=== PATIENT | male | born 1965 | race African-American/Black ===

== ENCOUNTER 2017-01-31 15:08 | Emergency (ER) | payer MEDICARE, OTHER ==
[~2017-01-31] VITALS: Ht 185.4 cm; Wt 150.0 kg
[~2017-01-31 15:08] MED LIST: ASPI325T PO; FURO20 PO; IMDU60TA PO; LISI-363 PO; METO50TA PO; POTA-243 PO; SIMV20 PO; ZOCO20TA PO
[2017-01-31 15:15] VITALS: BP 175/92; PULSE 88; RESP 14; TEMP 98; O2SAT 99
[2017-01-31] MEDS ORDERED: POTA-255 PO (15:21)
[2017-01-31] MEDS ORDERED: FURO1TAB62 PO (15:21)
[2017-01-31] MEDS ORDERED: ZOCO20TA PO (15:21)
[2017-01-31] MEDS ORDERED: ASPI325T PO (15:21)
[2017-01-31] MEDS ORDERED: METO50TA11 PO (15:21)
[2017-01-31] MEDS ORDERED: ROBA500T PO (16:06)
[2017-01-31] MEDS ORDERED: IBUP800T23 PO (16:06)
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
[2017-01-31] MEDS ORDERED: IBUPROFEN 800 MG TAB PO ONE (16:15)
[2017-01-31] MEDS ORDERED: METHOCARBAMOL 500 MG TAB PO ONE (16:15)
== END 2017-01-31 16:33 | disposition home or self-care (01) ==
LOC: NEPK 15:08
DX: S46.811A Strain of other muscles, fascia and tendons at shoulder and upper arm level, right arm, initial encounter (principal); I10 Essential (primary) hypertension; Z72.0 Tobacco use; X58.XXXA Exposure to other specified factors, initial encounter
CPT/HCPCS: 99283

== ENCOUNTER 2017-08-18 18:35 | Observation (INO) | payer OTHER ==
[~2017-08-18] VITALS: Ht 185.4 cm; Wt 152.5 kg
[~2017-08-18 18:35] MED LIST changes: +ASPI-183 PO; -ASPI325T PO; +FURO1TAB62 PO; -FURO20 PO; +IBUP1TAB7 PO; -IMDU60TA PO; -LISI-363 PO; +METO1TAB9 PO; -METO50TA PO; -POTA-243 PO; +POTA-255 PO; +ROBA500T PO; -SIMV20 PO
[2017-08-18 18:37] VITALS: BP 170/93; PULSE 97; RESP 22; TEMP 98.8; O2SAT 97
[2017-08-18 18:56] VITALS: O2SAT 96
[2017-08-18 18:57] VITALS: BP_SYST 174; BP_SYST 186; BP_DIAS 84; BP_DIAS 89; PULSE 89; RESP 15; O2SAT 97
[2017-08-18] MEDS ORDERED: ASPIRIN 81 MG CHEW TAB PO ONE (19:00)
[2017-08-18] MEDS ORDERED: SODIUM CHLORIDE 0.9% FLUSH 10 ML FLUSH IVF PRN (19:00)
--- NOTE | 2017-08-18 19:02 | PD ---
HPI Chief Complaint: Chest Pain Time Seen by Provider: 18:49 Travel History International Travel<30 days: No Contact w/Intl Traveler<30days: No History of Present Illness HPI 52-year-old male with a history of CABG and chronic muscle spasms presents to the emergency department complaining of anterior chest wall tightness with the sensation of "muscles locking up" along with right shoulder tingling for approximately 1 hour. Patient states that his big toe had a sharp pain, bent over, and then started developing this chest wall discomfort and 'tingling' of his right shoulder. States nothing worsens or relieves his pain at this point. Patient denies shortness of breath, nausea, vomiting, diarrhea. Denies recent trauma. Denies radiation of pain. States he has had similar symptoms previously which required a muscle relaxant but this episode seems more severe. Patient does have a history of hypertension, hyperlipidemia, diabetes and he does smoke cigarettes. Says he was late taking his medication today and thinks this is the cause of his pain. 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 His primary care physician is with [facility]. [facility] Past Medical History Arthritis: Yes (HANDS & KNEES) Asthma: No Autoimmune Disease: No Blood Disorders: No Heart Rhythm Problems: No Cancer: No Cardiac Catheterization: Yes Cardiovascular Problems: Yes High Cholesterol: Yes Chemotherapy: No Chest Pain: Yes Congestive Heart Failure: Yes COPD: No Cerebrovascular Accident: No Coronary Artery Disease: Yes Diabetes: No Endocrine: No GERD: No Genitourinary: No Headaches: Yes Hiatal Hernia: No Hypertension: Yes Immune Disorder: No Kidney Stones: No Musculoskeletal: No Neurologic: No Psychiatric: No Reproductive: No Respiratory: No Renal Failure: No Seizures: No Sickle Cell Disease: No Sleep Apnea: No Thyroid Disease: No Ulcer: No PNEUMOCCOCAL Vaccine (Year): 2 Past Surgical History Cardiac Surgery: Yes (CABG ) Coronary Artery Bypass Graft: Yes (TRIPLE 2011) Pacemaker: No Other Surgery: Yes (trip bypass) Social History Alcohol Use: Yes (OCCASSIONAL) Tobacco Use: Yes (SOME DAYS 4-6 CIG.) Substance Use: No Allergies-Medications (Allergen,Severity, Reaction): Coded Allergies: No Known Allergies (Unverified Adverse Reaction, Unknown, 08/18/17) Reported Meds & Prescriptions Reported Meds & Active Scripts Active Ibuprofen 800 Mg Tab 800 Mg PO Q8H PRN Robaxin (Methocarbamol) 500 Mg Tab 500 Mg PO QID PRN Reported Losartan (Losartan Potassium) 50 Mg Tab 50 Mg PO DAILY Clopidogrel (Clopidogrel Bisulfate) 75 Mg Tab 75 Mg PO DAILY Potassium Chloride ER (Potassium Chloride) 10 Meq Cap 10 Meq PO BID Isosorbide Mononitrate ER (Isosorbide Mononitrate) 120 Mg Enrique 120 Mg PO DAILY Amlodipine (Amlodipine Besylate) 10 Mg Tab 10 Mg PO DAILY Atorvastatin (Atorvastatin Calcium) 80 Mg Tab 80 Mg PO DAILY Flexeril (Cyclobenzaprine HCl) 10 Mg Tab 10 Mg PO TID Baclofen 10 Mg Tab 10 Mg PO Q6HR Metformin (Metformin HCl) 500 Mg Tab 500 Mg PO BIDPC Zocor (Simvastatin) 20 Mg Tab 20 Mg PO DAILY Potassium (Potassium Gluconate) 600 Mg Tablet 10 Meq PO DAILY Metoprolol Succinate ER 24 HR (Metoprolol Succinate) 50 Mg Tab 75 Mg PO BID Lasix (Furosemide) 20 Mg Tab 20 Mg PO DAILY Aspirin 325 Mg Tab 325 Mg PO DAILY Review of Systems Except as stated in HPI: all other systems reviewed are Neg Physical Exam Narrative GENERAL: Well-developed well-nourished in no apparent distress SKIN: Focused skin assessment warm/dry. HEAD: Atraumatic. Normocephalic. EYES: Pupils equal and round. No scleral icterus. No injection or drainage. ENT: No nasal bleeding or discharge. Mucous membranes pink and moist. NECK: Trachea midline. No JVD. CARDIOVASCULAR: Regular rate and rhythm. No murmur appreciated. RESPIRATORY: No accessory muscle use. Clear to auscultation. Breath sounds equal bilaterally. GASTROINTESTINAL: Abdomen soft, non-tender, nondistended. Hepatic and splenic margins not palpable. MUSCULOSKELETAL: No obvious deformities. No clubbing. No cyanosis. No edema. NEUROLOGICAL: Awake and alert. No obvious cranial nerve deficits. Motor grossly within normal limits. Normal speech. PSYCHIATRIC: Appropriate mood and affect; insight and judgment normal. Data Data Last Documented VS Vital Signs Date Time Temp Pulse Resp B/P (MAP) Pulse Ox O2 Delivery O2 Flow Rate FiO2 08/18/17 20:00 80 18 148/83 (104) 97 08/18/17 18:57 Nasal Cannula 2.00 08/18/17 18:37 98.8 Orders Orders Electrocardiogram (08/18/17 18:49) Ckmb (Isoenzyme) Profile (08/18/17 18:49) Complete Blood Count With Diff (08/18/17 18:49) Comprehensive Metabolic Panel (08/18/17 18:49) Magnesium (Mg) (08/18/17 18:49) Prothrombin Time / Inr (Pt) (08/18/17 18:49) Act Partial Throm Time (Ptt) (08/18/17 18:49) Troponin I (08/18/17 18:49) Chest, Single Ap (08/18/17 18:49) Ecg Monitoring (08/18/17 18:49) Bilateral Bp Monitoring (08/18/17 18:49) Iv Access Insert/Monitor (08/18/17 18:49) Oximetry (08/18/17 18:49) Oxygen Administration (08/18/17 18:49) Aspirin Chew (Aspirin Chew) (08/18/17 19:00) Sodium Chloride 0.9% Flush (Ns Flush) (08/18/17 19:00) Orphenadrine Inj (Norflex Inj) (08/18/17 19:30) CKMB (08/18/17 18:57) CKMB% (08/18/17 18:57) Sodium Chlor 0.9% 1000 Ml Inj (Ns 1000 M (08/18/17 20:15) Sodium Chlor 0.9% 1000 Ml Inj (Ns 1000 M (08/18/17 21:00) Nitroglycerin 2% Oint (Nitroglycerin 2% (08/18/17 20:30) Admit Order (Ed Use Only) (08/18/17 20:21) Labs Laboratory Tests Test 08/18/17 18:57 White Blood Count 8.4 TH/MM3 Red Blood Count 5.15 MIL/MM3 Hemoglobin 15.2 GM/DL Hematocrit 44.2 % Mean Corpuscular Volume 85.9 FL Mean Corpuscular Hemoglobin 29.5 PG Mean Corpuscular Hemoglobin Concent 34.3 % Red Cell Distribution Width 13.6 % Platelet Count 288 TH/MM3 Mean Platelet Volume 7.7 FL Neutrophils (%) (Auto) 46.0 % Lymphocytes (%) (Auto) 42.7 % Monocytes (%) (Auto) 7.3 % Eosinophils (%) (Auto) 3.3 % Basophils (%) (Auto) 0.7 % Neutrophils # (Auto) 3.9 TH/MM3 Lymphocytes # (Auto) 3.6 TH/MM3 Monocytes # (Auto) 0.6 TH/MM3 Eosinophils # (Auto) 0.3 TH/MM3 Basophils # (Auto) 0.1 TH/MM3 CBC Comment DIFF FINAL Differential Comment Prothrombin Time 9.7 SEC Prothromb Time International Ratio 1.0 RATIO Activated Partial Thromboplast Time 25.9 SEC Blood Urea Nitrogen 16 MG/DL Creatinine 1.42 MG/DL Random Glucose 107 MG/DL Total Protein 7.7 GM/DL Albumin 3.9 GM/DL Calcium Level 8.2 MG/DL Magnesium Level 2.1 MG/DL Alkaline Phosphatase 85 U/L Aspartate Amino Transf (AST/SGOT) 49 U/L Alanine Aminotransferase (ALT/SGPT) 42 U/L Total Bilirubin 0.4 MG/DL Sodium Level 137 MEQ/L Potassium Level 4.4 MEQ/L Chloride Level 106 MEQ/L Carbon Dioxide Level 25.9 MEQ/L Anion Gap 5 MEQ/L Estimat Glomerular Filtration Rate 63 ML/MIN Total Creatine Kinase 805 U/L Creatine Kinase MB 6.6 NG/ML Creatine Kinase MB % 0.8 % Troponin I LESS THAN 0.02 NG/ML MDM Medical Decision Making Medical Screen Exam Complete: Yes Emergency Medical Condition: Yes Differential Diagnosis STEMI, NSTEMI, Atypical chest pain, radiculopathy Narrative Course 52-year-old male with a history of CABG and chronic muscle spasms presents to the emergency department complaining of anterior chest wall tightness with the sensation of "muscles locking up" along with right shoulder tingling for approximately 1 hour. Patient states that his big toe had a sharp pain, bent over, and then started developing this chest wall discomfort and 'tingling' of his right shoulder. States nothing worsens or relieves his pain at this point. Patient denies shortness of breath, nausea, vomiting, diarrhea. Denies recent trauma. Denies radiation of pain. States he has had similar symptoms previously which required a muscle relaxant but this episode seems more severe. Patient does have a history of hypertension, hyperlipidemia, diabetes and he does smoke cigarettes. Says he was late taking his medication today and thinks this is the cause of his pain. 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 His primary care physician is with [facility]. His last stress test was November 2013. Vital signs stable. Physical exam findings consistent with muscle spasms of the right trapezius muscle. Palpation of the chest reproduces his pain. After reassessment, patient states that he started feeling a little short of breath but exam did not demonstrate respiratory distress. Norflex and 1L NS administered in the ED with improvement in his muscle symptoms. Avoided NSAIDS or prednisone for radicular symptoms because of significant cardiac history and concern for cardiac involvement. Laboratory Tests Test 08/18/17 18:57 White Blood Count 8.4 TH/MM3 Red Blood Count 5.15 MIL/MM3 Hemoglobin 15.2 GM/DL Hematocrit 44.2 % Mean Corpuscular Volume 85.9 FL Mean Corpuscular Hemoglobin 29.5 PG Mean Corpuscular Hemoglobin Concent 34.3 % Red Cell Distribution Width 13.6 % Platelet Count 288 TH/MM3 Mean Platelet Volume 7.7 FL Neutrophils (%) (Auto) 46.0 % Lymphocytes (%) (Auto) 42.7 % Monocytes (%) (Auto) 7.3 % Eosinophils (%) (Auto) 3.3 % Basophils (%) (Auto) 0.7 % Neutrophils # (Auto) 3.9 TH/MM3 Lymphocytes # (Auto) 3.6 TH/MM3 Monocytes # (Auto) 0.6 TH/MM3 Eosinophils # (Auto) 0.3 TH/MM3 Basophils # (Auto) 0.1 TH/MM3 CBC Comment DIFF FINAL Differential Comment Prothrombin Time 9.7 SEC Prothromb Time International Ratio 1.0 RATIO Activated Partial Thromboplast Time 25.9 SEC Blood Urea Nitrogen 16 MG/DL Creatinine 1.42 MG/DL Random Glucose 107 MG/DL Total Protein 7.7 GM/DL Albumin 3.9 GM/DL Calcium Level 8.2 MG/DL Magnesium Level 2.1 MG/DL Alkaline Phosphatase 85 U/L Aspartate Amino Transf (AST/SGOT) 49 U/L Alanine Aminotransferase (ALT/SGPT) 42 U/L Total Bilirubin 0.4 MG/DL Sodium Level 137 MEQ/L Potassium Level 4.4 MEQ/L Chloride Level 106 MEQ/L Carbon Dioxide Level 25.9 MEQ/L Anion Gap 5 MEQ/L Estimat Glomerular Filtration Rate 63 ML/MIN Total Creatine Kinase 805 U/L Creatine Kinase MB 6.6 NG/ML Creatine Kinase MB % 0.8 % Troponin I LESS THAN 0.02 NG/ML Toponin negative. CKMB elevated. Because of patient's persistent symptoms, history of significant cardiac disease, and risk factors, patient will be admitted to the chest pain center. Nitro administered prior to transfer of care to the Chest pain center. Pt remained stable throughout the visit. Advised on smoking cessation. 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 Diagnosis Primary Impression: Trapezius muscle strain Qualified Codes: S46.811A - Strain of other muscles, fascia and tendons at shoulder and upper arm level, right arm, initial encounter Additional Impressions: Atypical chest pain Elevated CK Condition: Stable Guerita Mednez Aug 18, 2017 19:02
[2017-08-18 19:07] LABS: AUTOMATED NEUTROPHIL # 3.9 TH/MM3 (1.8-7.7); BASOPHIL # 0.1 TH/MM3 (0-0.2); BASOPHIL % 0.7 % (0.0-2.0); EOSINOPHIL # 0.3 TH/MM3 (0-0.4); EOSINOPHIL % 3.3 % (0.0-4.0); HEMATOCRIT 44.2 % (39.0-51.0); HEMOGLOBIN 15.2 GM/DL (13.0-17.0); LYMPH % 42.7 % (9.0-44.0); LYMPHOCYTE # 3.6 TH/MM3 (1.0-4.8); MEAN CELL VOLUME 85.9 FL (80.0-100.0); MEAN CORPUSCULAR HEMOGLOBIN 29.5 PG (27.0-34.0); MEAN CORPUSCULAR HGB CONC 34.3 % (32.0-36.0); MEAN PLATELET VOLUME 7.7 FL (7.0-11.0); MONO % 7.3 % (0.0-8.0); MONOCYTE # 0.6 TH/MM3 (0-0.9); PLATELET COUNT 288 TH/MM3 (150-450); RED BLOOD COUNT 5.15 MIL/MM3 (4.50-5.90); RED CELL DISTRIBUTION WIDTH 13.6 % (11.6-17.2); WHITE BLOOD COUNT 8.4 TH/MM3 (4.0-11.0)
[2017-08-18] MEDS ORDERED: CYCL10TA PO (19:09)
[2017-08-18] MEDS ORDERED: CLOP75TA PO (19:09)
[2017-08-18] MEDS ORDERED: AMLO10TA2 PO (19:09)
[2017-08-18] MEDS ORDERED: ISOS120T PO (19:09)
[2017-08-18] MEDS ORDERED: LOSA50TA PO (19:09)
[2017-08-18] MEDS ORDERED: METF500T PO (19:09)
[2017-08-18] MEDS ORDERED: POTA10CA PO (19:09)
[2017-08-18] MEDS ORDERED: BACL10TA PO (19:09)
[2017-08-18] MEDS ORDERED: ATOR80TA45 PO (19:09)
[2017-08-18] MEDS ORDERED: ORPHENADRINE INJ 60 MG/2 ML AMP IM ONE (19:30)
[2017-08-18 19:33] LABS: PROTHROMBIN TIME - PATIENT 9.7 SEC (9.8-11.6)
--- NOTE | 2017-08-18 19:40 | RADRPT ---
EXAM DATE/TIME: 08/18/2017 19:07 [place] COMPARISON: CHEST SINGLE AP, July 14, 2014, 22:37. INDICATIONS : Chest tightness and shortness of breath. MEDICAL HISTORY : Chronic obstructive pulmonary disease. Smoker. SURGICAL HISTORY : CABG. ENCOUNTER: Initial ACUITY: 1 day PAIN SCORE: 0/10 LOCATION: Bilateral chest. FINDINGS: The lungs are clear without infiltrate, nodule, or mass. There is no appreciable pleural effusion fo r technique. Heart and mediastinum are unremarkable. There is evidence for prior median sternotomy. CONCLUSION: No acute cardiopulmonary disease. Sury Preciado MD on August 18, 2017 at 19:37 Board Certified Radiologist. This report was verified electronically.
[2017-08-18 19:50] LABS: ALBUMIN 3.9 GM/DL (3.4-5.0); ALKALINE PHOSPHATASE 85 U/L (45-117); ALT (GPT) 42 U/L (12-78); AST (GOT) 49 U/L (15-37); BICARBONATE 25.9 MEQ/L (21.0-32.0); BLOOD UREA NITROGEN 16 MG/DL (7-18); CALCIUM 8.2 MG/DL (8.5-10.1); CHLORIDE 106 MEQ/L (98-107); CREATININE 1.42 MG/DL (0.60-1.30); GLOMERULAR FILTRATION RATE 63 ML/MIN (>89); GLUCOSE,RANDOM 107 MG/DL (74-106); MAGNESIUM 2.1 MG/DL (1.5-2.5); SODIUM (NA) 137 MEQ/L (136-145); TOTAL BILIRUBIN ADULT 0.4 MG/DL (0.2-1.0); TOTAL PROTEIN 7.7 GM/DL (6.4-8.2); TROPONIN I LESS THAN 0.02 NG/ML (0.02-0.05)
[2017-08-18 20:00] VITALS: BP 148/83; PULSE 80; RESP 18; O2SAT 97
--- NOTE | 2017-08-18 20:06 | PD ---
Physical Exam Narrative General: The patient is a well-developed well-nourished male in no acute distress. Head and Neck exam: Head is normocephalic atraumatic. Eyes: EOMI, pupils are equal round and reactive to light. Nose: Midline septum with pink mucous membranes Mouth: Dentition unremarkable. Moist mucus membranes. Posterior oropharynx is not erythematous. No tonsillar hypertrophy. Uvula midline. Airway patent. Neck: No palpable lymphadenopathy. No nuchal rigidity. No thyromegaly. Cardiovascular: Regular rate and rhythm without murmurs, gallops, or rubs. Lungs: Clear to auscultation bilaterally. No wheezes, rhonchi, or rales. Abdomen: Soft, without tenderness to palpation in all 4 quadrants of the abdomen. No guarding, rebound, or rigidity. Normal bowel sounds are audible. No tenderness on palpation of McBurney's point. Negative Marrero's sign. Extremities: No clubbing or cyanosis. The patient has 1+ pitting edema bilateral lower extremities. He reports that he has chronic edema and is on a diuretic, however this is slightly worse than usual. 2+ pulses in all 4 extremities. Neurologic Exam: Grossly nonfocal. Skin Exam: No rash noted. Intact skin that is warm and dry. Data Data Last Documented VS Vital Signs Date Time Temp Pulse Resp B/P (MAP) Pulse Ox O2 Delivery O2 Flow Rate FiO2 08/18/17 20:00 80 18 148/83 (104) 97 08/18/17 18:57 Nasal Cannula 2.00 08/18/17 18:37 98.8 Orders Orders Electrocardiogram (08/18/17 18:49) Ckmb (Isoenzyme) Profile (08/18/17 18:49) Complete Blood Count With Diff (08/18/17 18:49) Comprehensive Metabolic Panel (08/18/17 18:49) Magnesium (Mg) (08/18/17 18:49) Prothrombin Time / Inr (Pt) (08/18/17 18:49) Act Partial Throm Time (Ptt) (08/18/17 18:49) Troponin I (08/18/17 18:49) Chest, Single Ap (08/18/17 18:49) Ecg Monitoring (08/18/17 18:49) Bilateral Bp Monitoring (08/18/17 18:49) Iv Access Insert/Monitor (08/18/17 18:49) Oximetry (08/18/17 18:49) Oxygen Administration (08/18/17 18:49) Aspirin Chew (Aspirin Chew) (08/18/17 19:00) Sodium Chloride 0.9% Flush (Ns Flush) (08/18/17 19:00) Orphenadrine Inj (Norflex Inj) (08/18/17 19:30) CKMB (08/18/17 18:57) CKMB% (08/18/17 18:57) Sodium Chlor 0.9% 1000 Ml Inj (Ns 1000 M (08/18/17 20:15) Sodium Chlor 0.9% 1000 Ml Inj (Ns 1000 M (08/18/17 21:00) Nitroglycerin 2% Oint (Nitroglycerin 2% (08/18/17 20:30) Admit Order (Ed Use Only) (08/18/17 20:21) Labs Laboratory Tests Test 08/18/17 18:57 White Blood Count 8.4 TH/MM3 Red Blood Count 5.15 MIL/MM3 Hemoglobin 15.2 GM/DL Hematocrit 44.2 % Mean Corpuscular Volume 85.9 FL Mean Corpuscular Hemoglobin 29.5 PG Mean Corpuscular Hemoglobin Concent 34.3 % Red Cell Distribution Width 13.6 % Platelet Count 288 TH/MM3 Mean Platelet Volume 7.7 FL Neutrophils (%) (Auto) 46.0 % Lymphocytes (%) (Auto) 42.7 % Monocytes (%) (Auto) 7.3 % Eosinophils (%) (Auto) 3.3 % Basophils (%) (Auto) 0.7 % Neutrophils # (Auto) 3.9 TH/MM3 Lymphocytes # (Auto) 3.6 TH/MM3 Monocytes # (Auto) 0.6 TH/MM3 Eosinophils # (Auto) 0.3 TH/MM3 Basophils # (Auto) 0.1 TH/MM3 CBC Comment DIFF FINAL Differential Comment Prothrombin Time 9.7 SEC Prothromb Time International Ratio 1.0 RATIO Activated Partial Thromboplast Time 25.9 SEC Blood Urea Nitrogen 16 MG/DL Creatinine 1.42 MG/DL Random Glucose 107 MG/DL Total Protein 7.7 GM/DL Albumin 3.9 GM/DL Calcium Level 8.2 MG/DL Magnesium Level 2.1 MG/DL Alkaline Phosphatase 85 U/L Aspartate Amino Transf (AST/SGOT) 49 U/L Alanine Aminotransferase (ALT/SGPT) 42 U/L Total Bilirubin 0.4 MG/DL Sodium Level 137 MEQ/L Potassium Level 4.4 MEQ/L Chloride Level 106 MEQ/L Carbon Dioxide Level 25.9 MEQ/L Anion Gap 5 MEQ/L Estimat Glomerular Filtration Rate 63 ML/MIN Total Creatine Kinase 805 U/L Creatine Kinase MB 6.6 NG/ML Creatine Kinase MB % 0.8 % Troponin I LESS THAN 0.02 NG/ML [facility] Medical Record Reviewed: Yes Supervised Visit with HANNAH: Yes Interpretation(s) Last Impressions Chest X-Ray 08/18/17 8343 Signed Impressions: Service Date/Time: Friday, August 18, 2017 19:07 - CONCLUSION: No acute cardiopulmonary disease. Sury Preciado MD Narrative Course I, Dr. Moise, have reviewed the advance practice practitioner's documentation and am in agreement, met with the patient face to face, made the diagnosis, and the medical decision making was done by me. The patient was initially evaluated by Guerita, the PA. Please see their complete history and physical. *My assessment and Findings: The patient presents with reported history of awakening with chest pain from sound sleep at approximately 4:30 to 5 PM this afternoon. He reports that he even had cramping in his right toe. He reports that he has a history of cardiac disease. He denies having any shortness of breath with the pain. He reports the pain was sharp and cramping in character. He reports that it been constant since the onset. The patient reports a history of having coronary artery bypass grafting in the past. He is unsure whether he has a history of congestive heart failure, however he does have a history of lower extremity edema and fluid in his lungs in the past by his report and is currently on a diuretic. During the course of the patients emergency department visit, the patients history, examination, and differential diagnosis were reviewed with the patient. The patient was placed on a lining marker with oximetry and frequent blood pressure monitoring. The patient had IV access obtained and blood work sent for analysis. The patient had an ECG done on arrival. The patient's ECG reveals a sinus rhythm nonspecific T-wave abnormalities, no acute ST segment elevation. QRS duration is 97 ms, QTC 429 ms. The patient was initially provided aspirin 162 mg by mouth 1, Norflex for muscle related pain, normal saline 1 L IV fluid bolus. The patients laboratory studies were reviewed and remarkable for a CBC that is within normal limits. CMP is remarkable for creatinine of 1.42, glucose 107, calcium 8.2, AST 49, CPK-MB 105, MB percent 0.8, troponin I less than 0.02, albumin 3. PT 9.7, PTT 25.9. Given the patient's elevated CPK with a normal MB percent, the patient's symptoms could certainly be musculoskeletal in origin, however given the patient's prior history of coronary artery disease, additional testing is warranted with a rule out serial cardiac enzyme protocol. The patient was given normal saline IV fluids. Radiology studies were reviewed and remarkable for a chest x-ray that shows no acute cardiopulmonary disease. The patients results were discussed with the patient, including the plan of care. I explained that further testing and/ or monitoring is indicated based on the patients history, examination, and/ or laboratory findings. Therefore, I recommended admission for additional evaluation. The patient expressed understanding and was agreeable with this plan. The patient was admitted to the hospital in stable condition and sent to a bed under the care of the chest pain center. Diagnosis Primary Impression: Chest pain, rule out acute myocardial infarction Additional Impression: Trapezius muscle strain Qualified Codes: S46.811A - Strain of other muscles, fascia and tendons at shoulder and upper arm level, right arm, initial encounter Admitting Information Admitting Physician Requests: Observation Condition: Stable Mary Moise MD Aug 18, 2017 20:06
[2017-08-18] MEDS ORDERED: SODIUM CHLOR 0.9% 1000 ML INJ 1,000 ML IV ONE (20:15)
[2017-08-18] MEDS: SODIUM CHLOR 0.9% 1000 ML INJ 1,000 ML IV SCH ×2 (20:29→20:56)
[2017-08-18] MEDS ORDERED: NITROGLYCERIN 2% OINT 1 GM PACKET TOPICAL ONE (20:30)
[2017-08-18 23:05] VITALS: BP 140/83; PULSE 78; RESP 18; TEMP 98.1; O2SAT 98
[2017-08-18 23:50] LABS: TROPONIN I LESS THAN 0.02 NG/ML (0.02-0.05)
[2017-08-19 00:58] VITALS: O2SAT 96
[2017-08-19 02:28] LABS: TROPONIN I LESS THAN 0.02 NG/ML (0.02-0.05)
[2017-08-19 03:43] VITALS: BP 150/91; PULSE 80; RESP 18; TEMP 98.1; O2SAT 97
[2017-08-19] MEDS: SODIUM CHLOR 0.9% 1000 ML INJ 1,000 ML IV SCH ×2 (06:17→06:29)
[2017-08-19 07:28] VITALS: O2SAT 94
[2017-08-19 08:14] VITALS: BP 144/77; PULSE 79; RESP 22; TEMP 98; O2SAT 97
[2017-08-19] MEDS ORDERED: ATORVASTATIN 80 MG TAB PO SCH (09:15)
[2017-08-19] MEDS ORDERED: GLUCAGON 1 MG/ML VIAL OTHER PRN (09:15)
[2017-08-19] MEDS ORDERED: FUROSEMIDE 20 MG TAB PO SCH (09:15)
[2017-08-19] MEDS ORDERED: CLOPIDOGREL 75 MG TAB PO SCH (09:15)
[2017-08-19] MEDS ORDERED: LOSARTAN 50 MG TAB PO SCH (09:15)
[2017-08-19] MEDS ORDERED: DEXTROSE 50% IN WATER 50 ML VIAL(D50) IV PUSH PRN (09:15)
--- NOTE | 2017-08-19 09:25 | HHI.HP ---
HPI Primary Care Physician Unknown Chief Complaint Chest pain History of Present Illness This is a 52-year-old male with history of CAD with a three-vessel CABG August 2011 that presents to ED with a complaint of waking up yesterday afternoon at 4: 00 with a pain in his left great toe, back pain is central chest discomfort he describes as "strange." States is not similar to when eating a bypass. Symptoms lasted 1 hour. He was short of breath. No nausea or diaphoresis. Discomfort has not recurred. 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 Arriola and confirmed that he had a stress test November 2016 is nonischemic. Most recent cardiac catheterization was December 2011 which is approximately 4 months after his bypass which revealed 2 out of 3 grafts patent but the vein graft to the RCA was totally included with failed PTCA of RCA. Patient voices compliance with medication for the most part but states he did not take his medications yesterday morning. Denies recent illness. Denies fevers or chills. Review of Systems General: Patient denies fevers, chills recent, and recent travel HEENT: Patient denies headache, sore throat, difficulty swallowing. Cardiovascular: Has the chest discomfort as mentioned above. Denies sensation of heart beating rapidly or irregularly. No syncope. Denies diaphoresis. Respiratory: He was short of breath. Denies inspirational chest discomfort. Denies coughing wheezing or hemoptysis. GI: Patient denies nausea, vomiting, diarrhea, abdominal pain, bloody stools. Musculoskeletal: Chronic back pain. Briefly a pain in his left great toe. Patient denies joint edema. Denies calf pain or edema. Neurovascular: Patient denies numbness, tingling, weakness in extremities. Denies headache. Endocrine: Denies polyuria and polydipsia. Hematologic: Denies easy bruising. Skin: Denies rash or itching. Past Family Social History Allergies: Coded Allergies: No Known Allergies (Unverified Adverse Reaction, Unknown, 08/18/17) Past Medical History CAD with 3 vessel bypass August 2011 followed by cardiac catheterization December 2011 revealing one out of 3 grafts included. Hypertension, hyperlipidemia, and diabetes. Still smokes cigarettes. Obesity. Past Surgical History Three-vessel bypass. Heart catheterizations 4 months later with failed PTCA attempt of the RCA vein graft. Reported Medications Reported Meds & Active Scripts Active Ibuprofen 800 Mg Tab 800 Mg PO Q8H PRN Reported Losartan (Losartan Potassium) 50 Mg Tab 50 Mg PO DAILY Clopidogrel (Clopidogrel Bisulfate) 75 Mg Tab 75 Mg PO DAILY Potassium Chloride ER (Potassium Chloride) 10 Meq Cap 10 Meq PO BID Isosorbide Mononitrate ER (Isosorbide Mononitrate) 120 Mg Enrique 120 Mg PO DAILY Amlodipine (Amlodipine Besylate) 10 Mg Tab 10 Mg PO DAILY Atorvastatin (Atorvastatin Calcium) 80 Mg Tab 80 Mg PO DAILY Flexeril (Cyclobenzaprine HCl) 10 Mg Tab 10 Mg PO TID Metformin (Metformin HCl) 500 Mg Tab 500 Mg PO BIDPC Potassium (Potassium Gluconate) 600 Mg Tablet 10 Meq PO DAILY Metoprolol Succinate ER 24 HR (Metoprolol Succinate) 50 Mg Tab 75 Mg PO BID Lasix (Furosemide) 20 Mg Tab 40 Mg PO DAILY Aspirin 325 Mg Tab 325 Mg PO DAILY Active Ordered Medications Current Medications Medications (Trade) Dose Ordered Sig/Eulalia Route Start Time Stop Time Status Last Admin (NS Flush) 2 ml UNSCH PRN IVF 08/18/17 19:00 Sodium Chloride 1,000 ml @ 125 mls/hr Q8H IV 08/18/17 21:00 08/19/17 06:17 Sodium Chloride 1,000 ml @ 100 mls/hr Q10H IV 08/18/17 20:29 (Norvasc) 10 mg DAILY PO 08/19/17 09:15 UNV (Aspirin) 325 mg DAILY PO 08/20/17 09:00 UNV (Lipitor) 80 mg DAILY PO 08/19/17 09:15 UNV (Plavix) 75 mg DAILY PO 08/19/17 09:15 UNV (Flexeril) 10 mg TID PO 08/19/17 13:00 UNV (Lasix) 40 mg DAILY PO 08/19/17 09:15 UNV (Imdur) 120 mg DAILY PO 08/19/17 09:15 UNV (Cozaar) 50 mg DAILY PO 08/19/17 09:15 UNV (Toprol Xl) 75 mg BID PO 08/19/17 21:00 UNV (KCl) 10 meq BID PO 08/19/17 09:15 UNV Non-Formulary Medication 10 meq DAILY PO 08/20/17 09:00 UNV (NovoLOG SUPPLEMENTAL SCALE) 1 ACHS SLIDING SCALE SQ 08/19/17 12:00 UNV (D50w (Vial) Inj) 50 ml UNSCH PRN IV PUSH 08/19/17 09:15 UNV (Glucagon Inj) 1 mg UNSCH PRN OTHER 08/19/17 09:15 UNV Family History There is family history of CAD. Social History Patient continues smoke about one third pack of cigarettes a day. Has occasional alcohol. Denies illicit drugs. Physical Exam Vital Signs Vital Signs Date Time Temp Pulse Resp B/P (MAP) Pulse Ox O2 Delivery O2 Flow Rate FiO2 08/19/17 08:14 98.0 79 22 144/77 (99) 97 08/19/17 03:43 98.1 80 18 150/91 (110) 97 08/19/17 00:58 96 Nasal Cannula 2.00 08/18/17 23:05 98.1 78 18 140/83 (102) 98 08/18/17 21:04 08/18/17 20:00 80 18 148/83 (104) 97 08/18/17 18:57 89 15 174/89 (117) 97 Nasal Cannula 2.00 186/84 (118) 08/18/17 18:56 96 Room Air 08/18/17 18:51 Nasal Cannula 2.00 08/18/17 18:37 98.8 97 22 170/93 (118) 97 Room Air Physical Exam GENERAL: This is a well-nourished, well-developed patient, in no apparent distress. Patient speaks in clear complete sentences. Patient is pleasant. Patient is obese at 152 kg. HEENT: Head is atraumatic and normocephalic. Neck is supple without lymphadenopathy and trachea is midline. No JVD or carotid bruits. CARDIOVASCULAR: Regular rate and rhythm without murmurs, gallops, or rubs. RESPIRATORY: Clear to auscultation. Breath sounds equal bilaterally. No wheezes , rales, or rhonchi. Chest wall is nontender. No use of accessory muscles. GASTROINTESTINAL: Abdomen is nontender, nondistended. Abdomen soft. No obvious pulsatile mass or bruit. No CVA tenderness. Strong femoral pulses bilaterally. Normal bowel sounds in all quadrants. MUSCULOSKELETAL: Patient is moving upper and lower extremities freely. No calf tenderness or edema, no Homans sign. Strong pulses in upper and lower extremities. NEUROLOGICAL: Patient is alert and oriented. Cranial nerves 2-12 are grossly intact. No focal deficits and speech is clear. SKIN: No rash and turgor is normal. Laboratory Laboratory Tests Test 08/18/17 18:57 08/18/17 23:00 08/19/17 01:00 White Blood Count 8.4 Red Blood Count 5.15 Hemoglobin 15.2 Hematocrit 44.2 Mean Corpuscular Volume 85.9 Mean Corpuscular Hemoglobin 29.5 Mean Corpuscular Hemoglobin Concent 34.3 Red Cell Distribution Width 13.6 Platelet Count 288 Mean Platelet Volume 7.7 Neutrophils (%) (Auto) 46.0 Lymphocytes (%) (Auto) 42.7 Monocytes (%) (Auto) 7.3 Eosinophils (%) (Auto) 3.3 Basophils (%) (Auto) 0.7 Neutrophils # (Auto) 3.9 Lymphocytes # (Auto) 3.6 Monocytes # (Auto) 0.6 Eosinophils # (Auto) 0.3 Basophils # (Auto) 0.1 CBC Comment DIFF FINAL Differential Comment Prothrombin Time 9.7 Prothromb Time International Ratio 1.0 Activated Partial Thromboplast Time 25.9 Blood Urea Nitrogen 16 Creatinine 1.42 Random Glucose 107 Total Protein 7.7 Albumin 3.9 Calcium Level 8.2 Magnesium Level 2.1 Alkaline Phosphatase 85 Aspartate Amino Transf (AST/SGOT) 49 Alanine Aminotransferase (ALT/SGPT) 42 Total Bilirubin 0.4 Sodium Level 137 Potassium Level 4.4 Chloride Level 106 Carbon Dioxide Level 25.9 Anion Gap 5 Estimat Glomerular Filtration Rate 63 Total Creatine Kinase 805 786 828 Creatine Kinase MB 6.6 5.7 Creatine Kinase MB % 0.8 0.7 Troponin I LESS THAN 0.02 LESS THAN 0.02 LESS THAN 0.02 Result Diagram: 08/18/17185608/18/17 185 Imaging Last 48 hours Impressions Chest X-Ray 08/18/17 1849 Signed Impressions: Service Date/Time: Friday, August 18, 2017 19:07 - CONCLUSION: No acute cardiopulmonary disease. Sury Preciado MD Course EKGs have sinus rhythm without significant ST segment depressions or elevations. Caprini VTE Risk Assessment Caprini VTE Risk Assessment: No/Low Risk (score <= 1) Caprini Risk Assessment Model Point Value = 1 Point Value = 2 Point Value = 3 Point Value = 5 Age 41-60 Minor surgery BMI > 25 kg/m2 Swollen legs Varicose veins or History of unexplained or recurrent spontaneous Oral contraceptives or hormone replacement Sepsis (< 1 month) Serious lung disease, including pneumonia (< 1 month) Abnormal pulmonary function Acute myocardial infarction Congestive heart failure (< 1 month) History of inflammatory bowel disease Medical patient at bed rest Age 61-74 Arthroscopic surgery Major open surgery (> 45 min) Laparoscopic surgery (> 45 min) Malignancy Confined to bed (> 72 hours) Immobilizing plaster cast Central venous access Age >= 75 History of VTE Family history of VTE Factor V Leiden Prothrombin [id number] Lupus anticoagulant Anticardiolipin antibodies Elevated serum homocysteine Heparin-induced thrombocytopenia Other congenital or acquired thrombophilia Stroke (< 1 month) Elective arthroplasty Hip, pelvis, or leg fracture Acute spinal cord injury (< 1 month) Prophylaxis Regimen Total Risk Factor Score Risk Level Prophylaxis Regimen 0-1 Low Early ambulation 2 Moderate Order ONE of the following: *Sequential Compression Device (SCD) *Heparin 5000 units SQ BID 3-4 Higher Order ONE of the following medications: *Heparin 5000 units SQ TID *Enoxaparin/Lovenox 40 mg SQ daily (WT < 150 kg, CrCl > 30 mL/min) *Enoxaparin/Lovenox 30 mg SQ daily (WT < 150 kg, CrCl > 10-29 mL/min) *Enoxaparin/Lovenox 30 mg SQ BID (WT < 150 kg, CrCl > 30 mL/min) AND/OR *Sequential Compression Device (SCD) 5 or more Highest Order ONE of the following medications: *Heparin 5000 units SQ TID (Preferred with Epidurals) *Enoxaparin/Lovenox 40 mg SQ daily (WT < 150 kg, CrCl > 30 mL/min) *Enoxaparin/Lovenox 30 mg SQ daily (WT < 150 kg, CrCl > 10-29 mL/min) *Enoxaparin/Lovenox 30 mg SQ BID (WT < 150 kg, CrCl > 30 mL/min) AND *Sequential Compression Device (SCD) Assessment and Plan Assessment and Plan * Chest pain: Patient has had serial cardiac enzymes and EKGs for ruling out purposes. CPKs were elevated however CK be percent have been normal. Patient had a nonischemic stress test November 2016 with his manager of manufacturing Dr. Arriola. Attempted speak with Dr. Arriola however he is out of town and Dr. Arvizu is covering and I am awaiting his call back. Further plan pending the conversation. * CAD: Patient will need to follow-up with his manager of manufacturing after discharge. Further plan pending my discussion with manager of manufacturing covering. * Hypertension: Continue current medication. * Hyperlipidemia: Continue current medication. * Diabetes: Patient will be on sliding scale insulin coverage while the chest pain center. At discharge she she continues medication and follow diabetic diet. * Renal insufficiency: Patient was given IV hydration. Will need follow-up with PCP. * Tobacco abuse: Patient has been counseled on importance of smoking cessation. * Obesity: Patient has been counseled on importance of diet and exercise and weight loss. Patient is stable time. He is agreeable to this plan. I spoke with Dr. Arvizu, states patient may be discharged and follow-up with his manager of manufacturing. This is explained to the patient. He is agreeable to this plan. He should return to ED for enteral issues. Delmar Calhoun Aug 19, 2017 09:25
[2017-08-19] MEDS ORDERED: ISOSORBIDE MONONITRATE 60 MG TAB PO SCH (10:00)
[2017-08-19] MEDS ORDERED: POTASSIUM CHLORIDE 10 MEQ CAP PO SCH (10:00)
--- NOTE | 2017-08-19 10:07 | HHI.DCPOC ---
Discharge Care Plan Diagnosis: (1) Chest pain (2) CAD (coronary artery disease) (3) Hx of CABG (4) Hypertension (5) Dyslipidemia (6) DM (diabetes mellitus) (7) Renal insufficiency (8) Tobacco use disorder Goals to Promote Your Health * To prevent worsening of your condition and complications * To maintain your health at the optimal level Directions to Meet Your Goals Take your medications as prescribed Follow your dietary instruction Follow activity as directed Keep your appointments as scheduled Take your immunizations and boosters as scheduled If your symptoms worsen call your PCP, if no PCP go to Urgent Care Center or Emergency Room Smoking is Dangerous to Your Health. Avoid second hand smoke Call the 24-hour hour crisis hotline for domestic abuse at Delmar Calhoun Aug 19, 2017 10:07
[2017-08-19] MEDS ORDERED: INSULIN ASPART SUPPLEMENTAL SCALE SQ SCH (12:00)
[2017-08-19] MEDS ORDERED: CYCLOBENZAPRINE HCL 10 MG TAB PO SCH (13:00)
--- NOTE | 2017-08-19 15:28 | EKG ---
Date Performed: 08/19/2017 Time Performed: 01:39:54 PTAGE: 52 years EKG: Sinus rhythm NONSPECIFIC T-WAVE ABNORMALITY BORDERLINE ECG Since PREVIOUS TRACING , no significant change noted PREVIOUS TRACIN08/18/2017 18.51 DOCTOR: Marcia Carrasco Interpretating Date/Time 08/19/2017 15:26:28
--- NOTE | 2017-08-19 15:31 | EKG ---
Date Performed: 08/18/2017 Time Performed: 18:51:02 PTAGE: 52 years EKG: Sinus rhythm NONSPECIFIC T-WAVE ABNORMALITY BORDERLINE ECG Since PREVIOUS TRACING , no significant change noted DOCTOR: Marica Carrasco Interpretating Date/Time 08/19/2017 15:30:27
[2017-08-19] MEDS ORDERED: METOPROLOL SUCCINATE 25 MG EXTENDED RELEASE TAB PO SCH (21:00)
[2017-08-20] MEDS ORDERED: POTASSIUM GLUCONATE PO SCH (09:00)
[2017-08-20] MEDS ORDERED: ASPIRIN 325 MG TAB PO SCH (09:00)
== END 2017-08-19 12:21 | disposition home or self-care (01) ==
LOC: NEPE 18:35 → NEDA 20:29 → NEPGCP 21:03
PROVIDERS: ADMIT Internal Medicine Cardiovascular Disease; ATTEND Internal Medicine Cardiovascular Disease
DX: R07.9 Chest pain, unspecified (principal); S46.811A Strain of other muscles, fascia and tendons at shoulder and upper arm level, right arm, initial encounter; R74.8 Abnormal levels of other serum enzymes; I25.10 Atherosclerotic heart disease of native coronary artery without angina pectoris; I11.0 Hypertensive heart disease with heart failure; I50.9 Heart failure, unspecified; N28.9 Disorder of kidney and ureter, unspecified; E11.9 Type 2 diabetes mellitus without complications; E78.5 Hyperlipidemia, unspecified; F17.200 Nicotine dependence, unspecified, uncomplicated; E66.9 Obesity, unspecified; Z68.41 Body mass index [BMI] 40.0-44.9, adult; Z79.82 Long term (current) use of aspirin; Z95.1 Presence of aortocoronary bypass graft; Z79.84 Long term (current) use of oral hypoglycemic drugs
CPT/HCPCS: 71045; 80053; 82550; 82552; 83735; 84484; 85025; 85610; 85730; 93005; 96360; 96361; 96372; 99285; G0378; J2360; J7030